=== PATIENT | male | born 1985 | race African-American/Black ===

== ENCOUNTER 2020-06-21 15:14 | Emergency (ER) | payer OTHER ==
[2020-06-21] MEDS ORDERED: NORMAL SALINE 1000 ML 1,000 ML IV ONE ×2 (15:21→17:32)
--- NOTE | 2020-06-21 15:23 | ER Document Report ---
ED Medical Screen (RME) - General Chief Complaint: High Blood Sugar Stated Complaint: HIGH BLOOD SUGAR Time Seen by Provider: 06/21/20 15:20 Mode of Arrival: Ambulatory Information source: Patient Notes: 34-year-old male presented to ED for elevated blood sugar. He states he went to the doctor yesterday and they told him his blood sugar was very high. He is never been diagnosed with diabetes. He states he went back to the doctor today and his blood sugar was higher so they sent him to the emergency room so he can get his blood sugar treated. He states he is never been diagnosed with any problems in the past and they were very concerned with his sugar being over 500 yesterday and today. He is alert oriented respirations regular nonlabored speaking in full sentences. He states he does after urinate very frequently. He was talking with his mother at the same time I was discussing this with him. I have greeted and performed a rapid initial assessment of this patient. A comprehensive ED assessment and evaluation of the patient, analysis of test results and completion of medical decision making process will be conducted by an additional ED providers. TRAVEL OUTSIDE OF THE [place] IN LAST 30 DAYS: No - Related Data Allergies/Adverse Reactions: No Known Allergies Allergy (Unverified 09/24/14 11:58) Past Medical History - Immunizations Hx Diphtheria, Pertussis, Tetanus Vaccination: Yes Physical Exam - Vital signs Vitals: Temp Pulse Resp BP Pulse Ox 98.2 F 95 20 146/92 H 97 06/21/20 15:19 06/21/20 15:19 06/21/20 15:19 06/21/20 15:19 06/21/20 15:19 Course - Vital Signs Vital signs: Temp Pulse Resp BP Pulse Ox 98.2 F 95 20 146/92 H 97 06/21/20 15:19 06/21/20 15:19 06/21/20 15:19 06/21/20 15:19 06/21/20 15:19
[2020-06-21 15:50] LABS: APPEARANCE,URINE CLEAR; BILIRUBIN,URINE NEGATIVE (NEGATIVE); COLOR,URINE STRAW; GLUCOSE, URINE >=500 mg/dL (NEGATIVE); KETONES,URINE TRACE mg/dL (NEGATIVE); LEUKOCYTE ESTERASE,URINE NEGATIVE (NEGATIVE); NITRITE,URINE NEGATIVE (NEGATIVE); PROTEIN,URINE 30 mg/dL (NEGATIVE); URINE SPECIFIC GRAVITY 1.027; UROBILINOGEN,URINE NEGATIVE mg/dL (<2.0)
[2020-06-21 16:47] LABS: ABSOLUTE BASOPHILS # (AUTO) 0.1 10^3/uL (0.0-0.2); ABSOLUTE EOSINOPHILS # (AUTO) 0.1 10^3/uL (0.0-0.6); ABSOLUTE LYMPHOCYTES (AUTO) 2.6 10^3/uL (0.5-4.7); ABSOLUTE MONOCYTES (AUTO) 0.6 10^3/uL (0.1-1.4); ABSOLUTE NEUT (AUTO) 6.5 10^3/uL (1.7-8.2); BASOPHILS % (AUTO) 0.8 % (0-2); EOSINOPHILS % (AUTO) 1.4 % (0-6); HEMATOCRIT 45.6 % (37.9-51.0); HEMOGLOBIN 16.3 g/dL (13.5-17.0); LYMPHOCYTES % (AUTO) 26.3 % (13-45); MEAN CORPUSCULAR HEMOGLOBIN 31.6 pg (27.0-33.4); MEAN CORPUSCULAR HGB CONC 35.9 g/dL (32.0-36.0); MEAN CORPUSCULAR VOLUME 88 fl (80-97); MONOCYTES % (AUTO) 6.4 % (3-13); PLATELET COUNT 225 10^3/uL (150-450); RED BLOOD COUNT 5.17 10^6/uL (4.35-5.55); SEGMENTED NEUTROPHILS % (AUTO) 65.1 % (42-78); TOTAL CELLS COUNTED % (AUTO) 100 %
[2020-06-21 17:05] LABS: ALBUMIN 4.9 g/dL (3.5-5.0); ALKALINE PHOSPHATASE 157 U/L (38-126); ANION GAP 12 (5-19); ASPARTATE AMINO TRANSFERASE 76 U/L (17-59); BILIRUBIN,DIRECT 0.3 mg/dL (0.0-0.4); BILIRUBIN,TOTAL 0.6 mg/dL (0.2-1.3); BLOOD UREA NITROGEN 13 mg/dL (7-20); CALCIUM 10.1 mg/dL (8.4-10.2); CARBON DIOXIDE 29 mmol/L (22-30); CHLORIDE 92 mmol/L (98-107); CREATINE KINASE 1111 U/L (55-170); GLUCOSE 392 mg/dL (75-110); POTASSIUM 4.7 mmol/L (3.6-5.0); TOTAL PROTEIN 8.6 g/dL (6.3-8.2)
--- NOTE | 2020-06-21 17:32 | ER Document Report ---
Entered by TASHA TOBIAS SCRIBE 06/21/20 1602 Acting as scribe for:JAGDEEP CESPEDES MD ED Blood Sugar Problem - General Chief Complaint: High Blood Sugar Stated Complaint: HIGH BLOOD SUGAR Time Seen by Provider: 06/21/20 15:20 Primary Care Provider: [facility] [[facility]] - Follow up as needed Mode of Arrival: Ambulatory Information source: Patient Notes: This 34 year old male patient with a family history of DM presents to the emergency department today with complaints of peeing a lot at night with increased thirst. [facility] and was put on Metformin 500 once a day for new onset diabetes and was told to come back today and his sugars were higher so they sent him to the ED. TRAVEL OUTSIDE OF THE [place] IN LAST 30 DAYS: No - Related Data Allergies/Adverse Reactions: No Known Allergies Allergy (Unverified 09/24/14 11:58) Past Medical History - General Information source: Patient - Social History Smoking Status: Current Every Day Smoker Cigarette use (# per day): Yes - 1/2 Chew tobacco use (# tins/day): No Frequency of alcohol use: None Drug Abuse: None Lives with: Family Family History: Reviewed & Not Pertinent Patient has homicidal ideation: No Endocrine Medical History: Reports: Hx Diabetes Mellitus Type 2 Surgical Hx: Negative - Immunizations Hx Diphtheria, Pertussis, Tetanus Vaccination: Yes Review of Systems - Review of Systems Constitutional: No symptoms reported EENT: See HPI, Other - thirsty Cardiovascular: No symptoms reported Respiratory: No symptoms reported Gastrointestinal: No symptoms reported Genitourinary: See HPI, Frequency Male Genitourinary: No symptoms reported Musculoskeletal: No symptoms reported Skin: No symptoms reported Hematologic/Lymphatic: No symptoms reported Neurological/Psychological: No symptoms reported -: Yes All other systems reviewed and negative Physical Exam - Vital signs Vitals: Temp Pulse Resp BP Pulse Ox 98.2 F 95 20 146/92 H 97 06/21/20 15:19 06/21/20 15:19 06/21/20 15:19 06/21/20 15:19 06/21/20 15:19 - Notes Notes: Physical Exam: General: Alert, obese. HEENT: Normocephalic. Atraumatic. PERRL. Extraocular movements intact. Oropharynx clear. Dry mucous membranes. Neck: Supple. Non-tender. Respiratory: No respiratory distress. Clear and equal breath sounds bilaterally. Cardiovascular: Regular rate and rhythm. Abdominal: Obese. Non-tender. No distension. Normal Bowel Sounds. Back: No gross abnormalities. Extremities: Moves all four extremities. Upper extremities: Normal inspection. Normal ROM. Lower extremities: Normal inspection. No edema. Normal ROM. Neurological: Normal cognition. AAOx4. Normal speech. Psychological: Normal affect. Normal Mood. Skin: Warm. Dry. Normal color. Course - Re-evaluation Re-evalutation: 06/21/20 19:35 The patient's blood sugar went down from 392 to 252 with only 2 L of normal saline IV. I suspect he will probably do well on metformin 500 mg twice daily, but will need to drink lots of fluids over the next few days to get stabilized. After that if his sugars continue to stay elevated he can always increase the dose of the metformin. - Vital Signs Vital signs: Temp Pulse Resp BP Pulse Ox 98.2 F 95 24 H 110/99 H 98 06/21/20 15:19 06/21/20 15:19 06/21/20 18:01 06/21/20 18:00 06/21/20 18:01 - Laboratory Result Diagrams: 06/21/20 16:32 06/21/20 16:32 Laboratory results interpreted by me: 06/21/20 06/21/20 06/21/20 15:31 15:56 16:32 Sodium 133.1 L Chloride 92 L Glucose 392 H POC Glucose 416 H* AST 76 H ALT 86 H Alkaline Phosphatase 157 H Creatine Kinase 1111 H Total Protein 8.6 H Urine Protein 30 H Urine Glucose (UA) >=500 H Urine Ketones TRACE H 06/21/20 06/21/20 17:45 19:11 Sodium Chloride Glucose POC Glucose 279 H 252 H AST ALT Alkaline Phosphatase Creatine Kinase Total Protein Urine Protein Urine Glucose (UA) Urine Ketones - EKG Interpretation by Me EKG shows normal: Sinus rhythm, [place], Intervals, QRS Complexes. abnormal: ST-T Waves - Nonspecific inferior T abnormalities Rate: Normal - 95 Rhythm: NSR When compared to previous EKG there are: Previous EKG unavailable Discharge - Discharge Clinical Impression: New onset type 2 diabetes mellitus, Non-traumatic rhabdomyolysis Condition: Stable Disposition: HOME, SELF-CARE Additional Instructions: Diabetes: You have an abnormally high blood sugar. This is called adult onset diabetes mellitus or AODM. It is common in adults who are overweight. It is due to cells in your body becoming resistant to the insulin your pancreas is producing. The metformin you are on increase his insulin sensitivity in the cells and allows them to utilize the insulin that your body is producing more effectively, and this way it lowers your blood sugars. Uncontrolled high blood sugar leads to early heart disease, strokes, nerve damage, eye damage, and kidney damage. All diabetics should follow a diet designed to control the blood sugar. Overweight diabetics should exercise regularly and lose weight. If this is not sufficient to control the blood sugar, pills or insulin shots are necessary. Younger people who develop diabetes almost always require insulin daily. Home testing of blood sugars or urine sugar is required. Diabetic teaching is available to help you figure insulin doses and monitor the blood sugar. Call the physician if there is faintness, excess sleepiness, or very rapid breathing. If hypoglycemia (LOW blood sugar) develops, symptoms are shakiness, weakness, sweating, and confusion. In this case, you should eat or drink something with sugar at once. Rhabdomyolysis: Your blood analysis today showed an extremely high level of the muscle enzyme called creatinine kinase or also known as CK in your bloodstream. This probably occurred due to you being dehydrated from all the urination you do when your blood sugars are quite high. It is very important that you drink plenty of fluids tonight and tomorrow to help flush that enzyme out of your system. Take your metformin dose tonight at bedtime. Be sure to drink plenty of fluids this evening and each time you wake up to go to the bathroom you should drink at least 1 or 2 glasses of water. Tomorrow start taking your metformin twice daily, once in the morning and once in the evening. You should be checking your blood sugars at least once a day to see how well you are responding to your metformin dose. Follow-up with your doctor over at [facility] tomorrow and take copies of your lab work from this evening, it is important for them to know that you are not insulin resistant diabetic but not an insulin-dependent type diabetic. You should also ask them about starting you on a low-dose Lisinopril. RETURN TO THE EMERGENCY ROOM IF ANY NEW OR WORSENING SYMPTOMS. Referrals: [facility] [Primary Care Provider] - Follow up as needed I personally performed the services described in the documentation, reviewed and edited the documentation which was dictated to the scribe in my presence, and it accurately records my words and actions.
--- NOTE | 2020-06-21 18:12 | EKG REPORT ---
SEVERITY:- ABNORMAL ECG - SINUS RHYTHM NONSPECIFIC T ABNORMALITIES, INFERIOR LEADS : Confirmed by: Cheko Archer MD 21-Jun-2020 18:12:23
[2020-06-21] MEDS ORDERED: METFORMIN HCL 500 MG TABLET PO ONE (19:15)
[2020-06-21 20:08] VITALS: BP 137/84
== END 2020-06-21 20:05 | disposition home or self-care (01) ==
LOC: ER 15:14
DX: E11.65 Type 2 diabetes mellitus with hyperglycemia (principal); M62.82 Rhabdomyolysis; R35.0 Frequency of micturition; F17.210 Nicotine dependence, cigarettes, uncomplicated; Z83.3 Family history of diabetes mellitus
CPT/HCPCS: 93005; 99284; 96360; 96361; 36415; 87086; 82962; 82550; 83735; 85025; 80053; 81001; 93010; J7030